=== PATIENT | male | born 1950 | race African-American/Black ===

== ENCOUNTER 2019-02-12 08:07 | Emergency (ER) | payer MEDICARE, OTHER ==
[~2019-02-12] VITALS: Ht 177.8 cm; Wt 80.0 kg
[~2019-02-12 08:07] MED LIST: ATEN-42 PO; CLOP75TA15 PO; LISI-651 PO; LOVA20TA2 PO; METF-414 PO; TAMS-11 PO
[2019-02-12 09:00] VITALS: BP 158/83
[2019-02-12] MEDS ORDERED: ACETAMINOPHEN WITH CODEINE 300/30MG TABLET PO ONE (09:00)
== END 2019-02-12 09:16 | disposition home or self-care (01) ==
LOC: ER 08:07
DX: M54.31 Sciatica, right side (principal); M79.604 Pain in right leg; I11.0 Hypertensive heart disease with heart failure; I50.9 Heart failure, unspecified; E11.9 Type 2 diabetes mellitus without complications; Z79.899 Other long term (current) drug therapy
CPT/HCPCS: 99283

== ENCOUNTER 2019-02-17 08:50 | Emergency (ER) | payer MEDICARE, OTHER ==
[~2019-02-17] VITALS: Ht 175.3 cm; Wt 73.0 kg
[2019-02-17] MEDS ORDERED: KETOROLAC 60MG/2ML VIAL IM ONE (09:45)
[2019-02-17 09:59] VITALS: BP 158/86
== END 2019-02-17 09:52 | disposition home or self-care (01) ==
LOC: ER 08:50
DX: M54.41 Lumbago with sciatica, right side (principal); I11.0 Hypertensive heart disease with heart failure; E11.9 Type 2 diabetes mellitus without complications; Z86.73 Personal history of transient ischemic attack (TIA), and cerebral infarction without residual deficits; Z79.899 Other long term (current) drug therapy
CPT/HCPCS: 96372; 99283; J1885